=== PATIENT | male | born 1960 | race Caucasian/White ===

== ENCOUNTER 2018-04-27 09:59 | Emergency (ER) ==
[2018-04-27 10:04] VITALS: BP 151/91; TEMP 97.7; BMI 25.1
[2018-04-27] MEDS ORDERED: LIDOCAINE HCL 1% SDV IM STA (10:18)
[2018-04-27] MEDS ORDERED: ROCEPHIN IM STA (10:18)
[2018-04-27] MEDS ORDERED: MORPHINE 4 MG/ML SYRINGE IM STA (10:19)
[2018-04-27] MEDS ORDERED: ZOFRAN 4 MG/2 ML IM STA (10:19)
--- NOTE | 2018-04-27 10:23 | ED.PDOC ---
General ED Provider: Dr. LEOBARDO LOWRY Chief Complaint: Tooth Problem Stated Complaint: dental pain Time Seen by Physician: 10:00 (seen with chet ) Mode of Arrival: Walk-In Information Source: Patient Exam Limitations: No limitations Nursing and Triage Documentation Reviewed and Agree: Yes Does patient meet sepsis criteria?: Yes If yes, has appropriate treatment been initiated?: No System Inflammatory Response Syndrome: Not Applicable Sepsis Protocol: For patient's 13 years and over: Temp is 96.8 and below OR 101 and greater Pulse >90 BPM Resp >20/minute Acutely Altered Mental Status Are patient's symptoms suggestive of a new infection, such as: -Pneumonia -Skin, Soft Tissue -Endocarditis -UTI -Bone, Joint Infection -Implantable Device -Acute Abdominal Infection -Wound Infection -Meningitis -Blood Stream Catheter Infection -Unknown EENT Complaint Exam - Dental/Oral Complaint/Exam Mechanism of Injury: No known trauma Onset/Duration: today seen dentist was told to come to ED FOR STRONGER MEDS Symptoms Are: Still present Timing: Constant Initial Severity: Moderate Current Severity: Moderate Location: FRONT TEETH SEE PHOTOS Character: Reports: Aching, Throbbing Aggravating: Reports: Heat, Cold, Chewing Alleviating: Reports: None Associated Signs and Symptoms: Reports: Swelling (MINIMALLEFT FACE ) Related History: Reports: Similar episode Cardiac Risk Factors: Reports: None Dental/Oral Surgical History: Reports: None Tooth Findings: Present: Gross decay, Gross caries Cervical Lymphadenopathy Present: No Facial Swelling Present: Yes (SEE PHOTO) Bleeding Present: No Septal Hematoma: No Foreign Body Present: No Dysphagia Present: No Drooling Present: No Asymmetrical Tonsillar Swelling Present: No Uvula Midline: Yes Heidi-tonsillar Fluctuence: No Trismus Present: No Palatal Petechiae Present: No Scarlatinaform Rash Present: No Lesions: Absent: Lip, Gums, Tongue, Buccal Mucosa, Pharynx Exanthem: Absent: Lip, Gums, Tongue, Buccal Mucosa, Pharynx Vesicles: Absent: Lip, Gums, Tongue, Buccal Mucosa, Pharynx Differential Diagnoses: Dental Caries Review of Systems - Review Of Systems Constitutional: Reports: No symptoms Eyes: Reports: No symptoms Ears, Nose, Mouth, Throat: Reports: No symptoms Respiratory: Reports: No symptoms Cardiac: Reports: No symptoms GI: Reports: No symptoms : Reports: No symptoms Musculoskeletal: Reports: No symptoms Skin: Reports: No symptoms Neurological: Reports: No symptoms Endocrine: Reports: No symptoms Hematologic/Lymphatic: Reports: No symptoms All Other Systems: Reviewed and Negative Past Medical History - Past Medical History Previously Healthy: Yes Endocrine: Reports: None Cardiovascular: Reports: None Respiratory: Reports: None Hematological: Reports: None Gastrointestinal: Reports: None Genitourinary: Reports: None Neuro/Psych: Reports: None Musculoskeletal: Reports: None Cancer: Reports: None - Surgical History General Surgical History: 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) - Family History Family History: Reports: Unknown - Social History Smoking Status: Never smoker Hx Substance Use: Yes ([employer]) Alcohol Screening: None Physical Exam - Physical Exam Appearance: Well-appearing, No pain distress, Well-nourished Eyes: SHEILA, EOMI, Conjunctiva clear ENT: Ears normal, Nose normal, Oropharynx normal Respiratory: Airway patent, Breath sounds clear, Breath sounds equal, Respirations nonlabored Cardiovascular: RRR, Pulses normal, No rub, No murmur GI/: Soft, Nontender, No masses, Bowel sounds normal, No Organomegaly Musculoskeletal: Normal strength, ROM intact, No edema, No calf tenderness Skin: Warm, Dry, Normal color Neurological: Sensation intact, Motor intact, Reflexes intact, Cranial nerves intact, Alert, Oriented Psychiatric: Affect appropriate, Mood appropriate Critical Care Note - Critical Care Note Total Time (mins): 0 Course - Course Orders, Labs, Meds: Orders Category Date Time Status Ceftriaxone Sodium [Rocephin] MEDS 04/27/18 10:18 Stat 1 gm IM ONCE STA Lidocaine HCl/Pf [Lidocaine HCl 1% Sdv] MEDS 04/27/18 10:18 Stat 2.1 ml IM ONCE STA Morphine Sulfate [Morphine 4 mg/ml Syringe] MEDS 04/27/18 10:19 Stat 4 mg IM ONCE STA Ondansetron HCl/Pf [Zofran 4 mg/2 ml] MEDS 04/27/18 10:19 Stat 4 mg IM ONCE STA Medications Discontinued Medications Generic Name Dose Route Start Last Admin Trade Name Freq PRN Reason Stop Dose Admin Ceftriaxone Sodium 1 gm 04/27/18 10:18 Rocephin IM 04/27/18 10:19 ONCE STA Lidocaine HCl 2.1 ml 04/27/18 10:18 Lidocaine Hcl 1% Sdv IM 04/27/18 10:19 ONCE STA Morphine Sulfate 4 mg 04/27/18 10:19 Morphine 4 Mg/Ml Syringe IM 04/27/18 10:20 ONCE STA Ondansetron HCl 4 mg 04/27/18 10:19 Zofran 4 Mg/2 Ml IM 04/27/18 10:20 ONCE STA Vital Signs: Temp Pulse Resp BP Pulse Ox 04/27/18 10:00 97.7 F 80 20 151/91 H 98 Departure - Departure Time of Disposition: 10:25 Disposition: HOME SELF-CARE Discharge Problem: Toothache Instructions: Toothache (ED) Condition: Good Pt referred to PMD for follow-up: Yes IPMP verified?: No Additional Instructions: Please call your Family Physician as soon as possible to schedule a follow-up appointment.STOP MOTRIN PLEASE Prescriptions: Amoxicillin 500 mg PO Q6HR #30 tablet Hydrocodone/Acetaminophen [Vincent 10-325 Tablet] 1 each PO Q8HR #20 tablet Allergies/Adverse Reactions: Allergies ciprofloxacin [From Cipro] Adverse Reaction (Verified 04/27/18 10:04) ciprofloxacin HCl [From Cipro] Adverse Reaction (Verified 04/27/18 10:04) Home Medications: Ambulatory Orders Amoxicillin 500 mg PO Q6HR #30 tablet 04/27/18 Clindamycin HCl 150 mg PO TID 04/27/18 Hydrocodone/Acetaminophen [Vincent 10-325 Tablet] 1 each PO Q8HR #20 tablet Ibuprofen 800 mg PO Q4-6H PRN 04/27/18
== END 2018-04-27 11:03 | disposition home or self-care (01) ==
LOC: ED 09:59
DX: K08.89 Other specified disorders of teeth and supporting structures (principal); K02.7 Dental root caries
CPT/HCPCS: 96372; 99282